=== PATIENT | female | born 2000 | race Caucasian/White ===

== ENCOUNTER 2023-01-26 11:58 | Emergency (ER) | payer MEDICAID ==
[~2023-01-26] VITALS: Ht 167.6 cm; Wt 116.6 kg
[2023-01-26 12:29] LABS: BASO # 0.03 K/mm3 (0.02-0.10); EOS # 0.06 K/mm3 (0.04-0.40); EOS % 0.7 % (0.1-4.0); HEMOGLOBIN 13.3 g/dL (12.0-15.0); LYMPH# 1.31 K/mm3 (1.20-3.40); MEAN CELL VOLUME 89 fl (78-95); MEAN CORPUSCULAR HEMOGLOBIN 30 pg (26-32); MEAN CORPUSCULAR HGB CONC 34 g/dL (33-37); MEAN PLATELET VOLUME 10.3 fl (7.4-10.4); MONO # 0.52 K/mm3 (0.10-0.60); NEU # 7.26 K/mm3 (1.40-6.50); PLATELET COUNT 216 K/mm3 (130-400); RED BLOOD COUNT 4.38 M/mm3 (4.10-5.30); RED CELL DISTRIBUTION WIDTH 12.5 % (11.5-14.5); WHITE BLOOD COUNT 9.2 K/mm3 (4.8-10.8)
[2023-01-26] MEDS ORDERED: PRENATAL GUMMI1 EACH PO (12:34)
[2023-01-26 12:44] LABS: ALBUMIN 3.5 g/dL (3.5-5.0); POTASSIUM 3.9 mmol/L (3.5-5.1)
[2023-01-26 12:45] LABS: CALCIUM 9.1 mg/dL (8.3-10.5)
[2023-01-26 12:46] LABS: TOTAL PROTEIN 6.9 g/dL (6.4-8.3)
[2023-01-26 13:01] LABS: URINE APPEARANCE HAZY; URINE BILIRUBIN NEGATIVE (NEGATIVE); URINE BLOOD NEGATIVE (NEGATIVE); URINE COLOR LIGHT YELLOW; URINE GLUCOSE NEGATIVE (NEGATIVE); URINE KETONE NEGATIVE (NEGATIVE); URINE LEUKOCYTE ESTERASE NEGATIVE (NEGATIVE); URINE NITRATE NEGATIVE (NEGATIVE); URINE PROTEIN(semi-quant) TRACE (NEGATIVE); URINE UROBILINOGEN NORMAL (NORMAL)
[2023-01-26 13:02] LABS: URINE MUCUS PRESENT (NOT PRESENT)
[2023-01-26 13:10] LABS: TOTAL BILIRUBIN 0.5 mg/dL (0.2-1.2)
[2023-01-26] MEDS ORDERED: FLAGYL375 MG PO (13:46)
[2023-01-26 14:30] VITALS: BP 133/67
[2023-01-26 14:31] LABS: CLUE CELLS NOT OBSERVED (Not Observd)
[2023-01-26 22:22] LABS: HEPATITIS B SURFACE ANTIGEN Negative (Negative)
[2023-01-26 22:23] LABS: HEPATITIS B SURFACE ANTIBODY <2.0 (())
[2023-01-26 23:04] LABS: HEPATITIS B CORE AB TOTAL Negative (Negative)
== END 2023-01-26 14:25 | disposition home or self-care (01) ==
LOC: ED 11:58
PROVIDERS: Family Medicine
DX: O23.592 Infection of other part of genital tract in pregnancy, second trimester (principal); O99.332 Smoking (tobacco) complicating pregnancy, second trimester; E66.9 Obesity, unspecified; F17.210 Nicotine dependence, cigarettes, uncomplicated; Z28.310 Unvaccinated for COVID-19; Z3A.24 24 weeks gestation of pregnancy
CPT/HCPCS: Q0111